=== PATIENT | male | born 1970 | race Caucasian/White ===

== ENCOUNTER 2017-07-28 18:25 | Emergency (ER) | payer SELFPAY ==
--- NOTE | 2017-07-31 09:47 | ER ---
ADMIT: 07/28/2017 RM/LOC: ER [facility] MR#: [id number] [facility] [id number] [place] [address] Emergency Room Report SEX: M AGE: 47 : 1970 DATE: 07/28/2017 ADDENDUM: CHIEF COMPLAINT: Ankle pain. HISTORY OF PRESENT ILLNESS: This is a 47-year-old male who twisted his ankle two days ago. He said he would get better since he was just thinking it was a sprain, but it has not, so he came in the ER. EMERGENCY ROOM COURSE: X-ray was done. There was no fracture, over-read by Dr. Aceves for the ankle and the foot. Discharging him home with an air splint, having him ice, use Motrin and Tylenol for pain. Activity as tolerated. Follow up if worsen. CLINICAL IMPRESSION: Left ankle sprain. SIDNEY Monroy / Marvel Aceves MD / flynnl JOB #: [id number] CC: Marvel Aceves MD, Attending Physician Ruslan Harrington MD, Family Physician
== END 2017-07-28 19:30 | disposition home or self-care (01) ==
LOC: ER 18:25
DX: S93.402A Sprain of unspecified ligament of left ankle, initial encounter (principal); Z79.82 Long term (current) use of aspirin; X50.1XXA Overexertion from prolonged static or awkward postures, initial encounter